=== PATIENT | female | born 1960 | race Caucasian/White ===

== ENCOUNTER 2024-09-07 09:51 | Outpatient (REF) | payer BC, SELFPAY | END 2024-09-07 09:52 | disposition home or self-care (01) | LOC: HO.HOSX 09:51 | PROVIDERS: Visit Provider Orthopaedic Surgery | DX: M25.562 Pain in left knee (principal) | CPT/HCPCS: 73562 ==

== ENCOUNTER 2024-09-07 14:46 | Outpatient (AMB) | payer BC, SELFPAY ==
--- NOTE | 2024-09-07 14:47 | A.OFFVIS_ITS ---
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 She describes her pain as sharp and severe in nature. Her pain has gotten worse over the last few years in spite of continued non operative treatments. She has failed the last 3 months of conservative treatment which has consisted of physical therapy exercises, topical creams, Tylenol and anti-inflammatory medicines. She has had multiple cortisone injections in the past. The most recent injection gave her minimal relief. She has also had viscosupplementation injections which gave her fairly good relief. She wishes to hold off on knee replacement surgery for as long as possible. At this point her left knee pain is interfering with her activities of daily living and her ability to sleep well through the night. Allergies oxycodone [From Percocet] Adverse Reaction (Unknown, Verified 09/07/24 15:05) mental fogginess Physical Exam Vital Signs: BMI result Body Mass Index 39.9 Const Other: Well-nourished well-developed very friendly female awake alert and oriented x3 in no acute distress Extrem Other: Bilateral lower extremity examination shows good capillary refill, no skin lesions noted, normal sensation light touch Left knee examination shows a minimal effusion, palpable crepitus with range of motion, pain with range of motion, range of motion from -3 degrees to 115 degrees, no instability Results Reviewed Results Reviewed: X-rays of the patient's left knee show joint space narrowing, subchondral sclerosis, no acute bony abnormalities Assessment & Plan Assessment & Plan (1) Osteoarthritis of left knee: Code(s): M17.12 - Unilateral primary osteoarthritis, left knee Category: Medical Plan Ms. Hussein presents with progressively worsening left knee pain due to osteoarthritis. I had a lengthy discussion with the patient regarding the treatment options. She wishes to hold off on total knee replacement surgery for as long as possible. I agree with this plan. She has not gotten good relief from cortisone injections in the past. Thus, I will see whether or not the patient's insurance company will cover a series of Euflexxa viscosupplementation injections. I will see her back once the injections are available. Feel free to call me at any time should questions regarding her orthopedic management arise. I spent 21 minutes in reviewing the patient's records and imaging studies, seeing the patient and documenting in the medical record. Orders: Orders XR knee LT 3V 09/07/24 M25.562 - Pain in left knee Coding Level of Care Code Est Pt Level 3 (88081) Complex EM visit Add On G2211 Diagnoses Osteoarthritis of left knee M17.12
[2024-09-07 15:00] VITALS: BMI 39.9
--- OUTSIDE RECORDS SUMMARY | 2024-09-14 15:02 | XMS_ITS ---
Author Name [facility] Organization Unknown History of Medication Use Medication Directions Dispensed Refills Start Date End Date [facility] gabapentin (NEURONTIN) 300 MG capsule TAKE 2 CAPSULES BY MOUTH IN THE MORNING THEN TAKE 4 CAPSULES BY MOUTH IN THE EVENING 07/20/2022 active amitriptyline (ELAVIL) 10 MG tablet TAKE 1 TABLET(10 MG) BY MOUTH EVERY NIGHT 07/20/2022 active Ozempic, 0.25 or 0.5 MG/DOSE, 2 MG/1.5ML prefilled pen injection INJECT 0.25MG UNDER THE SKIN ONCE A WEEK 07/20/2022 active clonazePAM (KlonoPIN) 2 MG tablet Take 1 tablet (2 mg total) by mouth every morning. 07/20/2022 active acetaminophen (TYLENOL) 325 MG tablet Take 2 tablets (650 mg total) by mouth 4 times daily (every 6 hours) as needed. 07/20/2022 active traZODone (DESYREL) 100 MG tablet Take 2 tablets (200 mg total) by mouth nightly. 07/20/2022 active Ozempic, 0.25 or 0.5 MG/DOSE, 2 MG/1.5ML prefilled pen injection INJECT 0.25MG UNDER THE SKIN ONCE A WEEK 08/28/2022 active sertraline (ZOLOFT) 100 MG tablet Take 2 tablets (200 mg total) by mouth every morning. 07/20/2022 active omega-3 fatty acids (omega-3 fatty acids) 1000 MG Cap capsule Take 1 capsule by mouth every morning. 07/20/2022 active phentermine (ADIPEX-P) 37.5 MG tablet Take 1 tablet (37.5 mg total) by mouth every morning before breakfast. 07/20/2022 active semaglutide (OZEMPIC) (0.25 or 0.5 mg/dose pen) prefilled pen injection Inject 0.25 mg under the skin once a week. 04/18/2023 active calcium carbonate-vitamin D 600 mg-400 unit tablet Take 1 tablet by mouth every morning. 07/20/2022 active ferrous sulfate 325 (65 FE) MG EC tablet Take 1 tablet (325 mg total) by mouth daily. Take 2 hours before or 4 hours after acid reducers. 07/20/2022 active methocarbamol (ROBAXIN) 750 MG tablet Take 1 tablet (750 mg total) by mouth 3 (three) times a day. 07/20/2022 active ARIPiprazole (ABILIFY) 5 MG tablet Take 0.5 tablets (2.5 mg total) by mouth every evening. 07/20/2022 active omega-3 fatty acids (omega-3 fatty acids) 1000 MG Cap capsule Take 1 capsule (1,000 mg total) by mouth every morning. 02/28/2023 active Problems Problem Status Onset Date Problem Type Date of Resoluti on Source Intertrochanteric fracture of right femur, closed, with routine healing, subsequent encounter active 2022-04-13 [facility] History of lumbar fusion active 2020-09-14 [facility] Sciatica active 2012-08-24 [facility]Act [facility] Generalized anxiety disorder active 2020-09-14 ProblemAct [facility] Other insomnia active 2020-09-[address] Post laminectomy syndrome active 2020-11-23 ProblemAct [facility] Ambulates with cane active 2022-03-13 ProblemAct [facility] Spinal stenosis active 2012-08-24 ProblemAct [facility] 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
== END 2024-09-07 15:27 | disposition home or self-care (01) ==
PROVIDERS: Visit Provider Orthopaedic Surgery
DX: M17.12 Unilateral primary osteoarthritis, left knee (principal)
CPT/HCPCS: 99213

== ENCOUNTER 2024-09-20 11:31 | Outpatient (AMB) | payer BC, SELFPAY ==
[2024-09-20 11:39] VITALS: BMI 39.9
--- NOTE | 2024-09-20 11:39 | MHC.OFFVIS ---
Vital Signs 09/20/24 11:39 Height 5 ft 3 in Weight 225 lb BMI 39.9 Intake Visit Reasons: Left knee pain Intake Note: Savannah is a 64 year old female who presents with complaints of progressively worsening left knee pain. She describes her pain as sharp and severe in nature. Most of the pain is along the medial aspect of her knee. She denies any locking or giving way. She has had cortisone injections in the past which gave her minimal relief. She has also had viscosupplementation injections which gave her fairly good relief. She has done physical therapy exercises which aggravated her pain. She has also tried Tylenol and anti-inflammatory medicines which gave her minimal relief. She wishes to hold off on total knee replacement surgery for as long as possible. Allergies oxycodone [From Percocet] Adverse Reaction (Unknown, Verified 09/20/24 11:40) mental fogginess Medication List - Last Reconciled 09/20/24 by James Hardin MD aripiprazole mg PO clonazepam 1 mg PO BID PRN desvenlafaxine succinate ER 50 mg PO DAILY gabapentin mg PO methocarbamol 750 mg PO TID trazodone 200 mg PO BEDTIME PRN Physical Exam Vital Signs: BMI result Body Mass Index 39.9 Const Other: Well-nourished well-developed very friendly female awake alert and oriented x3 in no acute distress Extrem Other: Bilateral lower extremity examination shows good capillary refill, no skin lesions noted, normal sensation light touch Left knee examination shows a minimal effusion, palpable crepitus with range of motion, pain with range of motion, range of motion from -3 degrees to 115 degrees, no instability Office Procedures AMB Joint Injection/Aspiration Joint Injection/Aspiration Primary Site: left knee Prep: site was prepped using aseptic technique Injected: 20 mg of (Euflexxa viscosupplementation) and 1% plain lidocaine Procedure: The patient tolerated the procedure well Coding 14129 - Large joint Procedure code (CPT) selection complete Results Reviewed Results Reviewed: X-rays of the patient's left knee taken previously show joint space narrowing, subchondral sclerosis, no acute bony abnormalities Assessment & Plan Assessment & Plan (1) Osteoarthritis of left knee: Code(s): M17.12 - Unilateral primary osteoarthritis, left knee Category: Medical (2) Left knee pain: Code(s): M25.562 - Pain in left knee Category: Medical Plan Ms. Adornato presents with progressively worsening left knee pain due to osteoarthritis. I had a lengthy discussion with the patient regarding the treatment options. The risks and benefits of a series of Euflexxa viscosupplementation injections were discussed at length with the patient. The patient wished to proceed. She tolerated the 1st injection well. She will continue with her home exercise program. She will follow up next week as scheduled. She will contact me prior to that time should any questions or concerns arise. I spent 20 minutes in reviewing the patient's records and imaging studies, seeing the patient and documenting in the medical record. Orders: Orders AMB Joint Injection/Aspiration Today M17.12 - Unilateral primary osteoarthritis, left knee Coding Level of Care Code Est Pt Level 3 (13961) Complex EM visit Add On G2211 Diagnoses Osteoarthritis of left knee M17.12 Left knee pain M25.562 CPT Codes Coding - 16481 Large joint: 88492 - Large joint ([id number])
== END 2024-09-20 12:23 | disposition home or self-care (01) ==
PROVIDERS: Visit Provider Orthopaedic Surgery
DX: M17.12 Unilateral primary osteoarthritis, left knee (principal)
CPT/HCPCS: 20610; 99213

== ENCOUNTER 2024-09-30 15:02 | Outpatient (AMB) | payer BC, SELFPAY ==
--- NOTE | 2024-09-30 15:04 | MHC.OFFVIS ---
Intake Visit Reasons: Inj-Left Knee Euflexxa #2 Intake Note: Savannah is a 64 year old female who presents today for her second dose of Euflexxa on the left knee. She states that she got mild relief from the 1st injection. She continues with her home exercise program Allergies oxycodone [From Percocet] Adverse Reaction (Unknown, Verified 09/30/24 15:07) mental fogginess Medication List - Last Reconciled 10/01/24 by James Hardin MD aripiprazole mg PO clonazepam 1 mg PO BID PRN desvenlafaxine succinate ER 50 mg PO DAILY gabapentin mg PO methocarbamol 750 mg PO TID trazodone 200 mg PO BEDTIME PRN Physical Exam Extrem Other: Left knee examination shows a minimal effusion, palpable crepitus with range of motion, pain with range of motion, no instability Office Procedures AMB Joint Injection/Aspiration Joint Injection/Aspiration Primary Site: left knee Injected: 20 mg of (Euflexxa viscosupplementation) and 1% plain lidocaine Procedure: The patient tolerated the procedure well Coding 25603 - Large joint Procedure code (CPT) selection complete Results Reviewed Results Reviewed: X-rays of the patient's left knee taken previously show joint space narrowing, subchondral sclerosis, no acute bony abnormalities Assessment & Plan Assessment & Plan (1) Osteoarthritis of left knee: Code(s): M17.12 - Unilateral primary osteoarthritis, left knee Category: Medical Plan Savannah presents with left knee pain due to osteoarthritis. The risks and benefits of a 2nd Euflexxa viscosupplementation injection were discussed at length with the patient. The patient wished to proceed. She tolerated the injection well. She will continue with her home exercise program. She will follow up next week as scheduled for her 3rd injection. Feel free to call me at any time should questions regarding her orthopedic management arise. Orders: Orders AMB Joint Injection/Aspiration 09/30/24 M17.12 - Unilateral primary osteoarthritis, left knee Coding Level of Care Code Procedure Only Diagnoses Osteoarthritis of left knee M17.12 CPT Codes Coding - 48095 Large joint: 76082 - Large joint ([id number])
== END 2024-09-30 15:21 | disposition home or self-care (01) ==
PROVIDERS: Visit Provider Orthopaedic Surgery
DX: M17.12 Unilateral primary osteoarthritis, left knee (principal)
CPT/HCPCS: 20610

== ENCOUNTER → 2024-09-30 15:02 | Outpatient (BNVA) | payer BC, SELFPAY | PROVIDERS: Visit Provider Orthopaedic Surgery | DX: M17.12 Unilateral primary osteoarthritis, left knee (principal) | CPT/HCPCS: 20610; J2003; J7323 ==

== ENCOUNTER 2024-10-05 15:04 | Outpatient (AMB) | payer BC, SELFPAY ==
--- NOTE | 2024-10-05 15:09 | A.OFFVIS_ITS ---
Vital Signs 10/05/24 15:10 Height 5 ft 3 in Weight 225 lb BMI 39.9 Intake Visit Reasons: Inj-Left Knee Euflexxa #3 Intake Note: Savannah is a 64 year old female who presents today for her third dose of Euflexxa on the left knee. She states that she has gotten mild relief from the 1st 2 injections. She continues with her home exercise program. Allergies oxycodone [From Percocet] Adverse Reaction (Unknown, Verified 10/05/24 15:11) mental fogginess Medication List - Last Reconciled 10/05/24 by James Hardin MD aripiprazole mg PO clonazepam 1 mg PO BID PRN desvenlafaxine succinate ER 50 mg PO DAILY gabapentin mg PO methocarbamol 750 mg PO TID trazodone 200 mg PO BEDTIME PRN Physical Exam Vital Signs: BMI result Body Mass Index 39.9 Extrem Other: Left knee examination shows a minimal effusion, palpable crepitus with range of motion, pain with range of motion, no instability Office Procedures AMB Joint Injection/Aspiration Joint Injection/Aspiration Primary Site: left knee Prep: site was prepped using aseptic technique Injected: 20 mg of (Euflexxa viscosupplementation) and 1% plain lidocaine Procedure: The patient tolerated the procedure well Coding 84049 - Large joint Procedure code (CPT) selection complete Results Reviewed Results Reviewed: X-rays of the patient's left knee show joint space narrowing, subchondral sclerosis, no acute bony abnormalities Assessment & Plan Assessment & Plan (1) Osteoarthritis of left knee: Code(s): M17.12 - Unilateral primary osteoarthritis, left knee Category: Medical Plan Ms. Hussein presents with left knee pain due to osteoarthritis. The risks and benefits of a 3rd Euflexxa injection were discussed at length with the patient. The patient wished to proceed. She tolerated the injection well. She will continue with her activity modifications. She will follow up with me on an as- needed basis should her symptoms not plateau at an unacceptable level over the next few months. Feel free to call me at any time should questions regarding her orthopedic management arise. Orders: Orders AMB Joint Injection/Aspiration Today M17.12 - Unilateral primary osteoarthritis, left knee Coding Level of Care Code Procedure Only Diagnoses Osteoarthritis of left knee M17.12 CPT Codes Coding - 66299 Large joint: 45173 - Large joint ([id number])
[2024-10-05 15:10] VITALS: BMI 39.9
== END 2024-10-05 15:30 | disposition home or self-care (01) ==
PROVIDERS: Visit Provider Orthopaedic Surgery
DX: M17.12 Unilateral primary osteoarthritis, left knee (principal)
CPT/HCPCS: 20610

== ENCOUNTER → 2024-10-05 15:04 | Outpatient (BNVA) | payer BC, SELFPAY | PROVIDERS: Visit Provider Orthopaedic Surgery | DX: M17.12 Unilateral primary osteoarthritis, left knee (principal) | CPT/HCPCS: 20610; J2003; J7323 ==